=== PATIENT | male | born 1955 | race Caucasian/White ===

== ENCOUNTER 2019-04-09 13:00 | Emergency (ER) | payer MEDICARE, OTHER ==
[2019-04-09] MEDS ORDERED: KETOROLAC TROMETHAMINE INJ/PF 30 MG/1 ML SDV IV ONE (13:28)
[2019-04-09] MEDS ORDERED: MORPHINE SULFATE 10 MG/ML INJ IV ONE (13:29)
[2019-04-09] MEDS ORDERED: ONDANSETRON HCL INJ/PF 4 MG/2 ML SDV IV ONE (13:29)
--- NOTE | 2019-04-09 13:30 | ER Document Report ---
ED Medical Screen (RME) - General Chief Complaint: Flank Pain Stated Complaint: FLANK PAIN Time Seen by Provider: 04/09/19 13:27 Primary Care Provider: GRAZYNA SOTO MD [Primary Care Provider] - Follow up as needed Mode of Arrival: Ambulatory Information source: Patient Notes: Patient is a 63-year-old male presented to the emergency department with sudden onset left flank pain that began this morning. Patient reports pain is now causing nausea with vomiting. Patient denies any urinary discomfort. Patient denies history of kidney stones. Exam: Significant tenderness in the left flank and left lower quadrant. I have greeted and performed a rapid initial assessment of this patient. A comprehensive ED assessment and evaluation of the patient, analysis of test results and completion of the medical decision making process will be conducted by additional ED providers. I have specifically instructed the patient or family members with the patient to immediately return to any nursing staff should anything change in the patient's condition or with their chief complaint. This medical record was dictated with voice recognizing software. There may be grammatical, syntax errors that are unintended. TRAVEL OUTSIDE OF THE [place] IN LAST 30 DAYS: No - Related Data Allergies/Adverse Reactions: No Known Allergies Allergy (Unverified 05/05/14 18:49) Past Medical History - Past Medical History Cardiac Medical History: Reports: Hx Hypertension Endocrine Medical History: Reports: Hx Diabetes Mellitus Type 2 - Immunizations Hx Diphtheria, Pertussis, Tetanus Vaccination: No Physical Exam - Vital signs Vitals: Temp Pulse Resp BP Pulse Ox 97.6 F 55 L 18 163/81 H 98 04/09/19 13:17 04/09/19 13:17 04/09/19 13:17 04/09/19 13:17 04/09/19 13:17 Course - Vital Signs Vital signs: Temp Pulse Resp BP Pulse Ox 97.6 F 55 L 18 163/81 H 98 04/09/19 13:17 04/09/19 13:17 04/09/19 13:17 04/09/19 13:17 04/09/19 13:17 Doctor's Discharge - Discharge Referrals: GRAZYNA SOTO MD [Primary Care Provider] - Follow up as needed
[2019-04-09 13:49] LABS: ABSOLUTE LYMPHOCYTES (AUTO) 1.1 10^3/uL (0.5-4.7); ABSOLUTE MONOCYTES (AUTO) 0.3 10^3/uL (0.1-1.4); ABSOLUTE NEUT (AUTO) 8.7 10^3/uL (1.7-8.2); BASOPHILS % (AUTO) 0.3 % (0-2); EOSINOPHILS % (AUTO) 0.1 % (0-6); HEMATOCRIT 44.4 % (37.9-51.0); HEMOGLOBIN 15.3 g/dL (13.5-17.0); LYMPHOCYTES % (AUTO) 10.7 % (13-45); MEAN CORPUSCULAR HEMOGLOBIN 29.4 pg (27.0-33.4); MEAN CORPUSCULAR HGB CONC 34.6 g/dL (32.0-36.0); MEAN CORPUSCULAR VOLUME 85 fl (80-97); MONOCYTES % (AUTO) 2.5 % (3-13); PLATELET COUNT 207 10^3/uL (150-450); RED BLOOD COUNT 5.21 10^6/uL (4.35-5.55); RED CELL DISTRIBUTION WIDTH 13.3 % (11.5-14.0); SEGMENTED NEUTROPHILS % (AUTO) 86.4 % (42-78); TOTAL CELLS COUNTED % (AUTO) 100 %
--- NOTE | 2019-04-09 13:55 | ER Document Report ---
ED GI/ - General Chief Complaint: Flank Pain Stated Complaint: FLANK PAIN Time Seen by Provider: 04/09/19 13:27 Primary Care Provider: GRAZYNA SOTO MD [Primary Care Provider] - Follow up as needed Mode of Arrival: Ambulatory Information source: Patient Notes: HPI: 63-year-old male who presents today with acute pain to the left back radiating into his left testicle. No history of kidney stones but his brother has had multiple. Nausea and vomiting x1. Dark urine. No fevers or vomiting. No aggravating or relieving factors. No radiation down the legs or weakness of the legs. Patient did go to a chiropractor who did x-rays and told the patient that he thought this was secondary to "bony breakdown". Patient states he feels much better after the medications in triage have been provided. ROS: See HPI All other review of systems reviewed and otherwise negative Reviewed vital signs and nursing note as charted by RN. PHYSICAL EXAM: CONSTITUTIONAL: Alert and oriented and responds appropriately to questions. Well-appearing; well-nourished HEAD: Normocephalic; atraumatic NECK: Supple without meningismus; non-tender; no cervical lymphadenopathy, no masses CARD: Regular rate and rhythm; no murmurs; symmetric distal pulses RESP: Normal chest excursion without splinting or tachypnea; breath sounds clear and equal bilaterally ABD/GI: Normal bowel sounds; non-distended; soft, non-tender currently to deep palpation of all 4 quadrants of the abdomen. No palpable masses or abdominal bruits on auscultation BACK: The back appears normal and is non-tender to palpation along the midline spine with no swelling, erythema, or step-offs appreciated. Patient does have some left flank pain with no swelling or erythema GI/: Patient has no testicular pain, swelling, scrotal erythema, or inguinal masses upon palpation EXT: Normal ROM in all joints; non-tender to palpation; no edema SKIN: No acute lesions noted NEURO: CN 2-12 intact; 5/5 bilateral upper and lower extremity strength with sensation intact to light touch PSYCH: The patient's mood and manner are appropriate. Grooming and personal hygiene are appropriate. TRAVEL OUTSIDE OF THE [place] IN LAST 30 DAYS: No - Related Data Allergies/Adverse Reactions: No Known Allergies Allergy (Unverified 05/05/14 18:49) Past Medical History - General Information source: Patient - Social History Smoking Status: Never Smoker Family History: Reviewed & Not Pertinent Patient has suicidal ideation: No Patient has homicidal ideation: No - Past Medical History Cardiac Medical History: Reports: Hx Hypertension Endocrine Medical History: Reports: Hx Diabetes Mellitus Type 2 - Immunizations Hx Diphtheria, Pertussis, Tetanus Vaccination: No Physical Exam - Vital signs Vitals: Temp Pulse Resp BP Pulse Ox 97.6 F 55 L 18 163/81 H 98 04/09/19 13:17 04/09/19 13:17 04/09/19 13:17 04/09/19 13:17 04/09/19 13:17 Course - Re-evaluation Re-evalutation: Given the history and physical examination I am initially concerned about the possibility of a kidney stone given the patient's presentation and brothers past medical history. 04/09/19 13:54 Labs initially as recorded. CT scan is pending. 04/09/19 15:35 Labs, urine, and CT scan as recorded. No obvious signs of urinary tract i nfection. Patient's pain is much controlled. Vital signs are stable. Patient will be discharged home with strict return precautions, pain medications, nausea medications, and follow-up with the urologist. - Vital Signs Vital signs: Temp Pulse Resp BP Pulse Ox 97.6 F 55 L 18 163/81 H 98 04/09/19 13:17 04/09/19 13:17 04/09/19 13:17 04/09/19 13:17 04/09/19 13:17 - Laboratory Result Diagrams: 04/09/19 13:34 04/09/19 13:34 Laboratory results interpreted by me: 04/09/19 04/09/19 04/09/19 13:34 13:34 15:06 Lymph % (Auto) 10.7 L Bowman % (Auto) 2.5 L Absolute Neuts (auto) 8.7 H Seg Neutrophils % 86.4 H BUN 25 H Creatinine 1.60 H Est GFR ( Amer) 53 L Est GFR (MDRD) Non-Af 44 L Glucose 232 H Urine Protein 100 H Urine Glucose (UA) 150 H Urine Ketones 20 H Urine Blood LARGE H Discharge - Discharge Clinical Impression: Kidney stone on left side Condition: Good Disposition: HOME, SELF-CARE Additional Instructions: Come back immediately for any increased pain, change in location or quality of pain, fevers or vomiting, or any other acute problems. Please follow-up with the urologist as we have discussed. Prescriptions: Hydrocodone/Acetaminophen [Kremlin 5-325 mg Tablet] 1 tab PO Q6H #12 tablet Ondansetron [Zofran Odt 4 mg Tablet] 1 tab PO Q6H #15 tab.rapdis Referrals: GRAZYNA SOTO MD [Primary Care Provider] - Follow up as needed [facility] [Provider Group] - Follow up as needed
[2019-04-09 14:15] LABS: ALBUMIN 4.5 g/dL (3.5-5.0); ALKALINE PHOSPHATASE 84 U/L (38-126); ANION GAP 12 (5-19); ASPARTATE AMINO TRANSFERASE 32 U/L (17-59); BILIRUBIN,DIRECT 0.3 mg/dL (0.0-0.4); BILIRUBIN,TOTAL 0.9 mg/dL (0.2-1.3); BLOOD UREA NITROGEN 25 mg/dL (7-20); CALCIUM 10.1 mg/dL (8.4-10.2); CARBON DIOXIDE 26 mmol/L (22-30); CHLORIDE 101 mmol/L (98-107); GLUCOSE 232 mg/dL (75-110); POTASSIUM 4.6 mmol/L (3.6-5.0); TOTAL PROTEIN 7.2 g/dL (6.3-8.2)
--- NOTE | 2019-04-09 14:38 | RADIOLOGY REPORT (SQ) ---
EXAM DESCRIPTION: CT ABD/PELVIS NO ORAL OR IV COMPLETED DATE/TIME: 04/09/2019 2:21 pm REASON FOR STUDY: Left flank pain COMPARISON: None. TECHNIQUE: CT scan of the abdomen and pelvis performed without intravenous or oral contrast. Images reviewed with lung, soft tissue, and bone windows. Reconstructed coronal and sagittal MPR images revi ewed. All images stored on PACS. All CT scanners at this facility use dose modulation, iterative reconstruction, and/or weight based d osing when appropriate to reduce radiation dose to as low as reasonably achievable (ALARA). [facility]: Dose Right [facility]: CareDose [facility]: Dose Right [facility]: Teradose 4D [facility]: [employer] RADIATION DOSE: CT Rad equipment meets quality standard of care and radiation dose reduction techniq ues were employed. CTDIvol: 6.4 mGy. DLP: 346 mGy-cm.mGy. LIMITATIONS: None. FINDINGS: LOWER CHEST: No significant findings. No nodules or infiltrates. NON-CONTRASTED LIVER, SPLEEN, ADRENALS: Evaluation limited by lack of IV contrast. No identified sign ificant masses. PANCREAS: No masses. No peripancreatic inflammatory changes. GALLBLADDER: No identified stones by CT criteria. No inflammatory changes to suggest cholecystitis. RIGHT KIDNEY AND URETER: No suspicious masses. Assessment limited by lack of IV contrast. No signif icant calcifications. No hydronephrosis or hydroureter. There right parapelvic cysts. LEFT KIDNEY AND URETER: No suspicious masses. Assessment limited by lack of IV contrast. 2 mm mid l eft ureteral stone. There is left-sided hydronephrosis and mild prominence of left ureter proximall y. This is secondary to an approximately 2 cm mid left ureteral stone. AORTA AND RETROPERITONEUM: No aneurysm. No retroperitoneal masses or adenopathy. BOWEL AND PERITONEAL CAVITY: No obvious masses or inflammatory changes. No free fluid. APPENDIX: Normal. PELVIS, BLADDER, AND ABDOMINAL WALL:Small umbilical hernia containing omental fat only. BONES: No significant findings. OTHER: No other significant finding. IMPRESSION: 2 mm left mid ureteral stone with secondary hydronephrosis and hydroureter. COMMENT: Quality ID # [id number]: Final reports with documentation of one or more dose reduction techniques (e.g., Automated exposure control, adjustment of the mA and/or kV according to patient size, use of iterative reconstruction technique) TECHNICAL DOCUMENTATION: JOB ID: [id number] [employer]- All Rights Reserved Reading location - IP/workstation name: [email or web address]
[2019-04-09] MEDS ORDERED: NORMAL SALINE 1000 ML 1,000 ML IV ONE (15:05)
[2019-04-09 15:28] LABS: APPEARANCE,URINE CLOUDY; BILIRUBIN,URINE NEGATIVE (NEGATIVE); GLUCOSE, URINE 150 mg/dL (NEGATIVE); KETONES,URINE 20 mg/dL (NEGATIVE); LEUKOCYTE ESTERASE,URINE NEGATIVE (NEGATIVE); NITRITE,URINE NEGATIVE (NEGATIVE); PROTEIN,URINE 100 mg/dL (NEGATIVE); URINE SPECIFIC GRAVITY 1.032; UROBILINOGEN,URINE NEGATIVE mg/dL (<2.0)
[2019-04-09 15:29] LABS: COLOR,URINE YELLOW
[2019-04-09 16:13] VITALS: BP 146/71
== END 2019-04-09 16:18 | disposition home or self-care (01) ==
LOC: ER 13:00
DX: N20.0 Calculus of kidney (principal); R10.9 Unspecified abdominal pain; R11.2 Nausea with vomiting, unspecified; I10 Essential (primary) hypertension; E11.9 Type 2 diabetes mellitus without complications
CPT/HCPCS: 99284; 96374; 96375; 36415; 83690; 85025; 80053; 81001; 74176; J1885; J2270; J2405; J7030